=== PATIENT | male | born 1965 | race Caucasian/White ===

== ENCOUNTER 2019-06-17 09:37 | Emergency (ER) | payer BC, MEDICAID ==
--- OUTSIDE RECORDS SUMMARY | 2019-06-17 10:20 | XMS REPORT | Summary of Care ---
:1965 Author Organization [facility] Address [address] [place] [address] Care Team Providers Name Role Phone Eve Umanzor Primary Care Provider Reason for Referral (Routine) Status Reason Specialty Diagnoses / Procedures Referred By Contact Referred To Contact Open Diagnoses Colon cancer screening Murtaza Umanzor Cologuard (External) EMIL Prado [address] [place] [phone] Email: [email or web address] Reason for Visit Reason Comments HIV Positive/AIDS Encounter Details Date Type Department Care Team Description 05/27/2019 Office Visit In[facility] JEFFERY Umanzor (Primary Dx); Services EMIL Prado Hx of cryptococcal meningitis; [address], [address] Colon cancer screening [address] [place] [phone] Allergies Active Allergy Reactions Severity Noted Date Comments Sulfamethoxazole-Trimethoprim Rash Low 08/20/2018 Piperacillin Sod-Tazobactam So Rash Medium 08/16/2017 documented as of this encounter (statuses as of 06/02/2019) Medications Medication Sig Dispensed Refills Start Date End Date Status acetaminophen (TYLENOL) Take 650 mg by 0 Active 325 MG tablet mouth every 6 (six) hours as needed for Pain fluconazole (DIFLUCAN) TAKE TWO TABLETS 60 tablet 5 08/12/2018 Active 200 MG tablet BY MOUTH EVERY DAY Additional information Patient taking differently: Take one tablet daily, Reported on 09/17/2018 8: 21 AM triamcinolone Apply to 45 g 1 11/19/2018 11/18/2019 Active (KENALOG) 0.1 % affected area cream twice per day as needed atovaquone (MEPRON) TAKE 10 ML 300 mL 5 01/13/2019 Active 750 MG/5ML ONCE A DAY suspension GENVOYA TAKE ONE 30 tablet 5 02/12/2019 Active [phone] MG TABLET BY per tablet MOUTH EVERY DAY Lisinopril 20 MG TAKE ONE 30 tablet 5 04/28/2019 Active Oral Tablet TABLET BY (PRINIVIL,ZESTRIL)In MOUTH EVERY dications: Essential DAY hypertension imiquimod (ALDARA) 5 Apply to anal 15 each 3 11/12/2018 05/27/2019 Discontinued % creamIndications: area, as (Therapy Severe anal directed, completed) dysplasia, every other histologically night, and confirmed, 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 HIV (human immunodeficiency virus infection) 08/02/2017 Eye lesion Ear lesion Drug rash Leukopenia documented as of this encounter (statuses as of 06/02/2019) Resolved Problems Problem Noted Date Resolved Date Altered mental status 08/02/2017 06/02/2019 Hyponatremia 08/02/2017 06/02/2019 Herpes zoster without complication 06/02/2019 Sepsis 06/02/2019 documented as of this encounter (statuses as of 06/02/2019) Immunizations Name Administration Dates Next Due Influenza Quad IM Pres Free (0.25 mL dose) 03/18/2018 Influenza Quad IM Pres Free (0.5 mL dose) 02/24/2019 Pneumococcal Conjugate PCV13 04/24/2018 documented as of this encounter Social History Tobacco Use Types Packs/Day Years Used Date Former Smoker Cigarettes 06 18 Smokeless Tobacco: Never Used Comments: quit 08/02/17, on nicorette patches Alcohol Use Drinks/Week oz/Week Comments Yes 1 Glasses of wine 1.0 Once a month Alcohol Habits Answer Date Recorded How often do you have a drink containing alcohol? Monthly or less 01/07/2019 How many drinks containing alcohol do you have on a 3 or 4 04/24/2018 typical day when you are drinking? How often do you have six or more drinks on one Less than monthly 04/24/2018 occasion? Social Isolation Answer Date Recorded In a typical week, how many times do you More than three times a week 2018 talk on the phone with family, friends, or neighbors? How often do you get together with friends Once a week 08/20/2018 or relatives? How often do you attend anglican or 1 to 4 times per year 08/20/2018 rastafari services? Do you belong to any clubs or No 08/20/2018 organizations such as anglican groups, unions, [employer] or athletic groups, or school groups? How often do you attend meetings of the Never 08/20/2018 clubs or organizations you belong to? Are you now , , , Never 08/20/2018 , never or living with a partner? Physical Activity Answer Date Recorded On average, how many days per week do you engage in moderate to 0 days 2018 strenuous exercise (like walking fast, running, jogging, dancing, swimming, biking, or other activities that cause a light or heavy sweat)? On average, how many minutes do you engage in exercise at this 0 min 2018 level? Stress Answer Date Recorded Do you feel stress - tense, restless, nervous, or Only a little 08/20/2018 anxious, or unable to sleep at night because your mind is troubled all the time - these days? Education Answer Date Recorded What is the highest level of school Master's degree (e.g., MA, MS, 08/20/2018 you have completed or the highest Julieta, MEd, RESTORATIVE AIDE, NEVAEH) degree you have received? Financial Resource Strain Answer Date Recorded How hard is it for you to pay for the very basics like Not very hard 2018 food, housing, medical care, and heating? Intimate Partner Violence Answer Date Recorded Within the last year, have you been afraid of your partner or No 08/20/2018 ex-partner? Within the last year, have you been humiliated or emotionally No 08/20/2018 abused in other ways by your partner or ex-partner? Within the last year, have you been kicked, hit, slapped, or No 08/20/2018 otherwise physically hurt by your partner or ex-partner? Within the last year, have you been raped or forced to have any No 08/20/2018 kind of sexual activity by your partner or ex-partner? Food Insecurity Answer Date Recorded Within the past 12 months, you worried that your food Sometimes true 2018 would run out before you got money to buy more. Within the past 12 months, the food you bought just Never true 08/20/2018 didn't last and you didn't have money to get more. Transportation Needs Answer Date Recorded In the past 12 months, has lack of transportation kept you from No 08/20/2018 medical appointments or from getting medications? In the past 12 months, has lack of transportation kept you from No 08/20/2018 meetings, work, or getting things needed for daily living? Sex Assigned at Date Recorded Male 10/16/2017 9:33 AM EDT Job Start Date Occupation Industry Not on file Not on file Not on file Travel History Travel Start Travel End No recent travel history available. documented as of this encounter Last Filed Vital Signs Vital Sign Reading Time Taken Comments Blood Pressure 120/88 05/27/2019 10:01 AM EST Pulse 72 05/27/2019 10:01 AM EST Temperature 36.8 05/27/2019 10:01 AM C (98.2 EST F) Respiratory Rate - - Oxygen Saturation 94% 05/27/2019 10:01 AM EST Inhaled Oxygen Concentration - - Weight 124.6 kg (274 lb 12.8 oz) 05/27/2019 10:01 AM EST Height 190.5 cm (6' 3") 05/27/2019 10:01 AM EST Body Mass Index 34.35 05/27/2019 10:01 AM EST documented in this encounter Progress Notes Eve Umanzor PA - 05/27/2019 10:00 AM EST John Boston (MR# [id number]) ROUTINE HIV CLINIC FOLLOW-UP: CHIEF COMPLAINT: HIV Positive/AIDS HPI: John is a 53 y.o. year old male with a history of AIDS, here for a routine follow-up visit. Reports that he has been doing well. Last seen in the office by me in February. Reports that he has been doingwell since last visit. He has no complaints today. ROS: No fever, sweats, chills, night sweats. No nausea, vomiting, diarrhea. No chest pain, shortnessof breath. No headaches, blurry vision. No muscle pain or weakness. No numbness or tingling in fingers or toes. HIV RELATED HPI: Onset: around 2002 Risk: MSM CD4 Trend: Slowly coming up. Faheem 32, 08/02/17. 233, 10% on last check 02/24. HIV Viral Load Trend: Undetectable now since Apr 2018. Coming down from 760 ,420 08/03/17. Anti-retroviral therapy history: His ART regimen consists of Genvoya. John states he remained adherent to therapy with HAART since his last visit. Pills Missed in last week: No. Opportunistic Infections present/Past: Cryptoccal meningitis, Disseminated zoster Sexual History: Not currently sexually active. States that he has not been active for about 9 years, since he left [place] and moved back to [place] where he grew up. SCREENING : RPR:NR 08/02/17 Hepatitis A IgG Ab: positive Hepatitis B surface antigen: negative Hepatitis B surface Antibody: positive Hepatitis C Ab: negative CMV status: positive Toxoplasma IgG Ab: negative Gonorrhea/Chlamydia screening: none on file, not sexually active in several years IMMUNIZATIONS Immunization History Administered Date(s) Administered Influenza Quad IM Pres Free (0.25 mL dose) 03/18/2018 Influenza Quad IM Pres Free (0.5 mL dose) 02/24/2019 Pneumococcal Conjugate PCV13 04/24/2018 ACTIVE PROBLEM LIST Patient Active Problem List Diagnosis Cryptococcal meningoencephalitis HIV (human immunodeficiency virus infection) AIDS Eye lesion Ear lesion Drug rash Leukopenia Essential hypertension MEDICATIONS Patient's Medications New Prescriptions No medications on file Previous Medications ACETAMINOPHEN (TYLENOL) 325 MG TABLET Take 650 mg by mouth every 6 (six) hours as needed for Pain ATOVAQUONE (MEPRON) 750 MG/5ML SUSPENSION TAKE 10 ML ONCE A DAY FLUCONAZOLE (DIFLUCAN) 200 MG TABLET TAKE TWO TABLETS BY MOUTH EVERY DAY GENVOYA [phone] MG PER TABLET TAKE ONE TABLET BY MOUTH EVERY DAY LISINOPRIL 20 MG ORAL TABLET (PRINIVIL,ZESTRIL) TAKE ONE TABLET BY MOUTH EVERY DAY TRIAMCINOLONE (KENALOG) 0.1 % CREAM Apply to affected area twice per day as needed Modified Medications No medications on file Discontinued Medications IMIQUIMOD (ALDARA) 5 % CREAM Apply to anal area, as directed, every other night, and wash off inthe morning. ALLERGIES: is allergic to zosyn [piperacillin sod-tazobactam so] and bactrim [ sulfamethoxazole-trimethoprim]. PHYSICAL EXAM: Visit Vitals BP 120/88 (BP Location: Right arm, Patient Position: Sitting, Cuff size: Regular ) Pulse 72 Temp 36.8 C (98.2 F) (Oral) Ht 1.905 m (6' 3") Wt 124.6 kg (274 lb 12.8 oz) SpO2 94% BMI 34.35 kg/m This is a pleasant 53 y.o. year old male sitting on the exam table today. He is alert, oriented, andin no apparent distress. His mood/affect, behavior, thought content, and judgement are all normal. HEENT: Normocephalic, atraumatic. EOMI, sclera anicteric. Oropharynx is clear, mucus membranes are moist, no lesions or exudate. NECK: Supple, non-tender, without notable adenopathy. HEART: Regular rate and rhythm, S1 and S2, without murmur, rub, or gallop. LUNGS: Clear to auscultation throughout. No wheezes, rales, or rhonchi noted. ABDOMEN: Soft, non-tender, normal bowel sounds, no organomegaly noted. SKIN: Warm, dry, no lesions or rash noted. EXTREMITIES: No clubbing, cyanosis, or edema. PERTINENT LABS: Lab Results Component Value Date CD4AC 233 (L) 02/24/2019 CD4PP 10 (L) 02/24/2019 [id number] <30 02/24/2019 WBC 6.2 02/24/2019 RBC 4.54 (L) 02/24/2019 MCV 94.6 02/24/2019 HGB 14.9 02/24/2019 HCT 43.0 02/24/2019 PLT 341 02/24/2019 GLUCOSE 78 02/24/2019 CREATININE 0.89 02/24/2019 TPUA Negative 08/14/2017 BUN 15 02/24/2019 ALBUMIN 4.5 02/24/2019 AST 22 02/24/2019 ALT 17 02/24/2019 TOXOIGG 0.33 08/05/2017 SYPC Non Reactive 08/02/2017 HCVAB Negative 08/02/2017 HEALTH MAINTENANCE Quantiferon/PPD:none on file Anal pap results: 04/24/18 LGSIL, HPV 18 and other HR. Seeing tanner Bro HRA in Jun 2019 Yearly Dental: needs Yearly Eye Exam: utd Colonoscopy:agreeable to Cologuard DEXA Scan: not due IMPRESSION/PLAN: 1. HIV: Doing well on ART with Genvoya. No missed doses of medication. No noted side effects or issues with pharmacy. Continue current HAART regimen, no changes. Continue Mepron for PCP prophylaxis for now. Last CD4 233, 10% 02/24/19. Continue fluconazole for cryptococcal meningitis for now. Has completed 1 year of treatment. CD4 now > 200, if remains above 200, will consider stopping. Will check labs today: CBC/diff, CMP, CD4 count, and HIV viral load. 2. Depression: Improved. He is using meditation and an efra called InterResolve that he has found very helpful. 3. Anal dysplasia: Has been following with Dieudonne. 4. Health Maintenance: As above. Cologuard ordered. 5. Follow-up in 3 months. Smoking Cessation: John reports that he has quit smoking. His smoking use included cigarettes. He smoked 1.00 pack perday for 30.00 years. He has never used smokeless tobacco. ( quit 08/02/17, on nicorette patches) documented in this encounter Plan of Treatment Date Type Specialty Care Team Description 07/10/2019 Procedure visit Infectious Diseases Dieudonne Feliz PA [address] [place] [address] 08/27/2019 Office Visit Infectious Diseases Karolina Noland MD [address] [place] [address] Name Type Priority Associated Diagnoses Order Schedule Cologuard (External) Lab Routine Colon cancer screening Ordered: 05/27/2019 Health Maintenance Due Date Last Done Comments Varicella Vaccines (1 of 2 09/07/1968 - 2-dose childhood series) DTaP,Tdap,and Td Vaccines 09/07/1974 (1 - Tdap) MMR Vaccines (1 of 2 - Risk 09/07/1985 2-dose series) Hepatitis B Vaccines (1 of 09/07/1986 3 - Risk 3-dose series) Colon Cancer Screening 10 09/07/2017 yrs Pneumococcal Vaccine: 06/19/2018 04/24/2018 Pediatrics (0 to 5 Years) and At-Risk Patients (6 to 64 Years) (2 of 3 - PPSV23) Pneumococcal Vaccine: 65+ 09/07/2032 04/24/2018 Years (2 of 2 - PPSV23) Influenza Vaccine Completed 02/24/2019, 03/18/2018 HIV Screening Completed 05/27/2019, 02/24/2019, 01/07/2019, Additional history exists HIB Vaccines Aged Out No longer eligible based on patient's age to complete this topic Hepatitis A Vaccines Aged Out No longer eligible based on patient's age to complete this topic IPV Vaccines Aged Out No longer eligible based on patient's age to complete this topic documented as of this encounter Procedures Procedure Name Priority Date/Time Associated Comments Diagnosis CD4 COUNT Routine 05/27/2019 10:41 AIDS Results for this AM EST procedure are in the results section. HIV-1 PCR PLASMA Routine 05/27/2019 10:41 AIDS Results for this AM EST procedure are in the results section. CBC AND DIFFERENTIAL Routine 05/27/2019 10:41 AIDS Results for this AM EST procedure are in the results section. COMPREHENSIVE Routine 05/27/2019 10:41 AIDS Results for this METABOLIC PANEL AM EST procedure are in the results section. documented in this encounter Results HIV-1 PCR Plasma (05/27/2019 10:41 AM EST) Copies HIV-1 RNA/ml <30 {copies}/mL [facility] Clin Pathology HIV-1 Interpretation Not Detected [facility] Pathology Specimen Plasma Performing Organization Address City/State/Zipcode Phone Number [facility] CL[facility] [address] [place] [address] [phone] [facility] Clin [address] [place] [address] Pathology CMP (05/27/2019 10:41 AM EST) Albumin 4.6 3.5 - 5.2 g/dL [facility] Pathology Bilirubin, Total 0.4 <1.2 mg/dL [facility] Pathology Calcium 9.4 8.6 - 10.0 [facility] mg/dL [facility] Chloride 96 (L) 98 - 107 mmol/L [facility] Creatinine 1.04 0.70 - 1.20 [facility] mg/dL [facility] Glucose 93 70 - 140 mg/dL [facility] Pathology Alkaline Phosphatase 97 40 - 129 U/L [facility] Pathology Potassium 4.5 3.4 - 5.1 [facility] mmol/L [facility] Pathology Total Protein 7.8 6.4 - 8.3 g/dL [facility] Pathology Sodium 131 (L) 136 - 145 [facility] mmol/L [facility] AST/SGO 18 <40 U/L [facility] Pathology Blood Urea Nitrogen 18 6 - 20 mg/dL [facility] Pathology Osmolality, Fly 273 (L) 275 - 300 [facility] mosm/kg [facility] BUN/Cre Ratio 17 [facility] Bicarbonate 22 22 - 29 mmol/L [facility] Pathology ALT/SGP 17 <41 U/L [facility] Pathology Anion Gap 13 8 - 15 mmol/L [facility] Pathology A/G Ratio 1.4 [facility] Pathology GFR Non 81 >60 [facility] [place] 2008 CDK-EPI mL/min/1.73m2 [facility] GFR >90 >60 [facility] 2009 CKD-EPI mL/min/1.73m2 [facility] Pathology Specimen Plasma Performing Organization Address City/State/[facility] Phone Number [facility] CL[facility] [address] [place] [address] [phone] [facility] [address] [place] [address] Pathology CD4 Count (05/27/2019 10:41 AM EST) CD3 ABSOLUTE T 1,820 570 - 2,400 [facility] CELLS {cells}/uL [facility] CD3 % Mature T 85 62 - 87 % [facility] Cells [facility] CD4 Absolute Count 209 (L) 430 - 1,800 [facility] {cells}/uL [facility] CD4 % 10 (L) 32 - 64 % [facility] Stevenson/Inducer [facility] Pathology CD8 ABSOLUTE COUNT 1,568 (H) 210 - 1,200 [facility] {cells}/uL [facility] CD8 % 73 (H) 15 - 46 % [facility] SUPPRES/CYTOTOXIC [facility] Pathology Lymphocyte Count 2,136 1,564 - 4,570 [facility] cells/uL [facility] CD4/CD8 Ratio 0.1 (L) 0.8 - 3.9 [facility] Pathology Comment (NOTE) [facility] Comment: Univ Clin Reference range established on 11/05/14. Pathology Reference ranges for adults and children 5 years - 54 years old per [employer] [facility]. Reference ranges for adults >55 years of age per [facility]. Pediatric reference ranges for children less than 5 years of age per [facility], Juan Callejas MD. Specimen EDTA Whole Blood Performing Organization Address City/State/Zipcode Phone Number [facility] CL[facility] [address] [place] [address] [facility] [address] [place] [phone] Pathology CBC and Differential (05/27/2019 10:41 AM EST) White Blood Cell 6.1 4 - 10 [facility] 10*3/uL [facility] Pathology Red Blood Cell 4.69 4.6 - 6.1 [facility] 10*6/uL [facility]ology Hemoglobin 15.4 13.5 - 18 [facility] g/dL [facility] Hematocrit 44.6 41 - 53 % [facility] Pathology Mean Cell Volume 95.3 80 - 96 fL [facility] Pathology Mean Cell Hemoglobin 32.9 27 - 33 pg [facility] Pathology Mean Cell Hgb Conc 34.5 32.0 - 36.0 [facility] g/dL [facility] Pathology Red Cell Dist Width 13.6 11.5 - 14.5 % [facility] Clin Pathology Platelet Count 303 150 - 400 [facility] 10*3/uL [facility] Pathology Differential Type Automated Diff [facility]ology Neutrophil 50 % [facility] Lymphocyte 34 % [facility] Monocyte 7 % [facility]ology Eosinophil 7 % [facility] Pathology Basophil 2 % [facility] Pathology Abs Neutrophil 3.15 1.8 - 7.0 [facility] 10*3/uL [facility] Pathology Abs Lymphocyte 2.04 1.2 - 4.0 [facility] 10*3/uL [facility] Pathology Abs Monocyte 0.40 0 - 0.8 [facility] 10*3/uL [facility] Pathology Abs Eosinophil 0.41 0 - 0.5 [facility] 10*3/uL [facility] Pathology Abs Basophil 0.09 0 - 0.2 [facility] 10*3/uL [facility] Pathology Nucleated Red Blood 0 0 - 0 [facility] Cells /100{WBCs} [facility] Pathology Specimen EDTA Whole Blood Performing Organization Address City/State/Zipcode Phone Number [facility] CL[facility]ICAL PATHOLOG[facility] [address] [place] [address] [phone] [facility] [address] [place] [address] Pathology documented in this encounter Visit Diagnoses Diagnosis AIDS - Primary Human immunodeficiency virus [HIV] disease Hx of cryptococcal meningitis Personal history of infections of the central nervous system Colon cancer screening Special screening for malignant neoplasms, colon documented in this encounter
[2019-06-17 10:30] VITALS: BP 144/94
--- NOTE | 2019-06-17 11:47 | UC ---
Respiratory Complaint HPI - HPI Summary HPI Summary: 53 year old male with no PMH presents iwth painful dry throat, coughing, runny nose, headache, chills, tactile fever x 2 days. OTC medications working well for symptoms. Concerned as is undergoing cancer surgery on Saturday, wants to make sure he is not contagious. - History of Current Complaint Chief Complaint: UCRespiratory Stated Complaint: HEADACHE,COUGH,CHILLS Time Seen by Provider: 06/17/19 11:37 Hx Obtained From: Patient Onset/Duration: Sudden Onset, Lasting Days - 2 Timing: Constant Severity Initially: Mild Severity Currently: Mild Pain Intensity: 2 Pain Scale Used: 0-10 Numeric Character: Cough: Nonproductive Aggravating Factors: Deep Breaths Alleviating Factors: OTC Meds Associated Signs And Symptoms: Positive: Fever, Chills, URI, Nasal Congestion, Hoarseness, Sinus Discomfort - Allergies/Home Medications Allergies/Adverse Reactions: Allergies Allergy/AdvReac Type Severity Reaction Status Date / Time Penicillins Allergy Hives Verified 06/17/19 10:29 piperacillin Allergy Rash Verified 06/17/19 10:29 sulfamethoxazole Allergy Hives Verified 06/17/19 10:29 [From Bactrim] tazobactam Allergy Rash Verified 06/17/19 10:29 trimethoprim [From Bactrim] Allergy Hives Verified 06/17/19 10:29 Home Medications: Home Medications Acetaminophen TAB* [Tylenol TAB*] 650 mg PO Q4H PRN 06/17/19 [History Confirmed 06/17/19] Atovaquone* [Mepron*] 10 ml DAILY 06/17/19 [History Confirmed 06/17/19] Elviteg/Cob/Emtri/Tenof Alafen [Genvoya Tablet] 1 tab DAILY 06/17/19 [History Confirmed 06/17/19] Fluconazole [Fluconazole 200 mg tab] 1 tab DAILY 06/17/19 [History Confirmed ] Lisinopril TAB* [Prinivil TAB 10 MG*] 20 mg DAILY 06/17/19 [History Confirmed ] Triamcinolone 0.5% CREAM(NF) [Triamcinolone 0.5% CREAM*] 1 applic DAILY [History Confirmed 06/17/19] PMH/Surg Hx/FS Hx/Imm Hx Previously Healthy: Yes - Surgical History Surgical History: None - Family History Known Family History: Positive: Non-Contributory - Social History Occupation: Employed Full-time Alcohol Use: Occasionally Substance Use Type: Marijuana Smoking Status (MU): Former Smoker Review of Systems All Other Systems Reviewed And Are Negative: Yes Constitutional: Positive: Fever, Chills, Fatigue ENT: Positive: Sore Throat, Ear Ache, Sinus Congestion, Sinus Pain/Tenderness Respiratory: Positive: Cough Cardiovascular: Positive: Negative Gastrointestinal: Positive: Nausea Neurological: Positive: Headache Psychological: Positive: Negative Is Patient Immunocompromised?: No Physical Exam Triage Information Reviewed: Yes Appearance: No Pain Distress, Well-Nourished, Ill-Appearing - mild to moderate Vital Signs: Initial Vital Signs Temp 98.8 F 06/17/19 10:25 Pulse 89 06/17/19 10:25 Resp 16 06/17/19 10:25 BP 144/94 06/17/19 10:25 Pulse Ox 97 06/17/19 10:25 Vital Signs Reviewed: Yes Eyes: Positive: Conjunctiva Clear ENT: Positive: Pharynx normal, Nasal congestion, TMs normal, Sinus tenderness - b/l frontal mild. Negative: Pharyngeal erythema, TM bulging, TM dull, TM red, Tonsillar swelling, Tonsillar exudate, Uvula midline Neck: Positive: Supple, Nontender, No Lymphadenopathy. Negative: Nuchal Rigidity, Enlarged Nodes @ Respiratory: Positive: Chest non-tender, Lungs clear, Normal breath sounds, No respiratory distress, No accessory muscle use. Negative: Respiratory distress, Crackles, Rhonchi, Stridor, Wheezing Cardiovascular: Positive: RRR, No Murmur Abdomen Description: Positive: Nontender Musculoskeletal: Positive: Strength Intact Neurological: Positive: Alert Skin Exam: Normal Respiratory Course/Dx - Course Course Of Treatment: - Flu +, tamiflu written for to hopefully decrease symptoms, duration of disease - Very contagious, avoid contact with other x 5 more days - Over the counter medications for symptoms including tylenol/ motrin as needed - REturn with increased symptoms, lightheadedness, increased pain, difficulty breathing - ALbuterol inhaler as needed for wheezing/ shortness of breath/ coughing every 4 hours - Differential Dx/Diagnosis Provider Diagnosis: Influenza Discharge ED - Sign-Out/Discharge Documenting (check all that apply): Patient Departure All imaging exams completed and their final reports reviewed: No Studies - Discharge Plan Condition: Good Disposition: HOME Prescriptions: Albuterol HFA INHALER* [Ventolin HFA Inhaler*] 1 - 2 puff INH Q4H PRN #1 mdi PRN Reason: shortness of breath, cough Oseltamivir CAP* [Tamiflu CAP*] 75 mg PO DAILY #5 cap Patient Education Materials: Influenza (ED) Forms: *Work Release Referrals: [facility] [Outside] No Primary Care Phys,NOPCP [Primary Care Provider] - Additional Instructions: - Flu +, tamiflu written for to hopefully decrease symptoms, duration of disease - Very contagious, avoid contact with other x 5 more days - Over the counter medications for symptoms including tylenol/ motrin as needed - REturn with increased symptoms, lightheadedness, increased pain, difficulty breathing - ALbuterol inhaler as needed for wheezing/ shortness of breath/ coughing every 4 hours - Billing Disposition and Condition Condition: GOOD Disposition: Home
[2019-06-17 11:58] LABS: Influenza A Molecular POSITIVE (Negative)
== END 2019-06-17 12:45 | disposition home or self-care (01) ==
LOC: UCCORT 09:37
DX: J11.1 Influenza due to unidentified influenza virus with other respiratory manifestations (principal); Z87.891 Personal history of nicotine dependence; Z88.0 Allergy status to penicillin; Z88.2 Allergy status to sulfonamides
CPT/HCPCS: 99203; G0463